=== PATIENT | male | born 1990 | race Hispanic/Latino ===

== ENCOUNTER 2024-01-21 13:42 | Emergency (ER) | payer OTHER ==
[~2024-01-21] VITALS: Ht 182.9 cm; Wt 113.4 kg
[2024-01-21] MEDS: KETOROLAC 60 MG VIAL (30MG/ML) IM ONE (15:55)
[2024-01-21] MEDS ORDERED: IBUP-2077 PO (17:24)
[2024-01-21 18:30] VITALS: BP 138/77; PULSE 82; RESP 18; O2SAT 99
== END 2024-01-21 18:37 | disposition home or self-care (01) ==
LOC: EDH 13:42
DX: S93.491A Sprain of other ligament of right ankle, initial encounter (principal); S93.691A Other sprain of right foot, initial encounter; X50.1XXA Overexertion from prolonged static or awkward postures, initial encounter; Y93.01 Activity, walking, marching and hiking; Y92.89 Other specified places as the place of occurrence of the external cause; Y99.8 Other external cause status
CPT/HCPCS: 99284; 29515; 73600; 73630; 73590; 96372; J1885